=== PATIENT | female | born 1965 | race Caucasian/White ===

== ENCOUNTER 2017-12-05 08:52 | Emergency (ER) | payer BC ==
[2017-12-05] MEDS ORDERED: Adenosine 12 MG/4 ML SDV IVPUSH ONE (09:03)
[2017-12-05] MEDS ORDERED: Adenosine 6 MG/2 ML SDV IVPUSH ONE (09:03)
[2017-12-05] MEDS ORDERED: Adenosine 6 MG/2 ML SDV ONE (09:06)
[2017-12-05] MEDS ORDERED: Sodium Chloride 0.9% 1,000 ML ONE (09:06)
[2017-12-05] MEDS ORDERED: Adenosine 12 MG/4 ML SDV ONE ×2 (09:07→09:09)
[2017-12-05] MEDS ORDERED: Sodium Chloride 0.9% 10 ML Syringe FLUSH PRN (09:12)
[2017-12-05] MEDS ORDERED: Sodium Chloride 0.9% 500 ML IV ONE (09:12)
--- NOTE | 2017-12-05 09:13 | EDM.PDOC ---
ED HPI GENERAL MEDICAL PROBLEM - General Chief Complaint: Cardiovascular Problem Stated Complaint: RAPID HEART RATE Time Seen by Provider: 12/05/17 08:58 Source of Information: Reports: Patient, RN Notes Reviewed - History of Present Illness INITIAL COMMENTS - FREE TEXT/NARRATIVE: 52-year-old female comes in with palpitations, tachycardia. [place] onset of the palpitations and tachycardia about 90 minutes ago. She was not doing anything in particular at the time. Had no chest pain or tightness. Very mild dizziness. No nausea vomiting or diaphoresis. She is not aware of ever having had this before. She also has not been recently ill. Chest Pain Score (Numeric/FACES): 5 - Related Data Allergies Allergy/AdvReac Type Severity Reaction Status Date / Time No Known Allergies Allergy Verified 12/05/17 09:06 Home Meds: Home Meds Sertraline HCl [Sertraline HCl] 75 mg PO DAILY 12/05/17 [History] ED ROS GENERAL - Review of Systems Review Of Systems: Unable To Obtain Constitutional: Denies: Fever, Chills, Diaphoresis HEENT: Reports: No Symptoms Respiratory: Denies: Shortness of Breath, Pleuritic Chest Pain Cardiovascular: Denies: Chest Pain GI/Abdominal: Denies: Abdominal Pain, Nausea, Vomiting Musculoskeletal: Denies: Neck Pain, Shoulder Pain Neurological: Reports: Dizziness (Mild) ED EXAM, GENERAL - Physical Exam Exam: See Below General Appearance: Alert, No Apparent Distress Eye Exam: Bilateral Eye: PERRL Throat/Mouth: Normal Inspection Neck: Supple Respiratory/Chest: No Respiratory Distress, Lungs Clear, Normal Breath Sounds Cardiovascular: Tachycardia GI/Abdominal: Soft, Non-Tender Back Exam: No: CVA Tenderness (L), CVA Tenderness (R) Extremities: Normal Inspection, Normal Range of Motion. No: Pedal Edema, Leg Pain Neurological: Alert, Oriented, No Motor/Sensory Deficits Skin Exam: Warm, Dry, Normal Color EKG INTERPRETATION EKG Date: 12/05/17 Rhythm: NSR P-Wave: Present QRS: Normal ST-T: Depressed (Slight ST depression the V3V5) Course - Vital Signs Last Recorded V/S: Last Vital Signs Temp 97.7 F 12/05/17 09:08 Pulse 200 H 12/05/17 09:08 Resp 20 12/05/17 09:08 BP 149/97 H 12/05/17 09:08 Pulse Ox 96 12/05/17 09:08 - Orders/Labs/Meds Orders: Active Orders 24 hr Category Date Time Status EKG 12 Lead [EKG Documentation Completion] [RC] STAT Care 12/05/17 09:11 Active Peripheral IV Care [RC] . DIRECTED Care 12/05/17 09:12 Active Peripheral IV Insertion Adult [OM.PC] Stat Oth 12/05/17 09:12 Ordered Labs: Laboratory Tests 12/05/17 12/05/17 Range/Units 09:00 09:00 WBC 9.04 (3.98-10.04) K/mm3 RBC 4.75 (3.98-5.22) M/mm3 Hgb 13.1 (11.2-15.7) gm/L Hct 40.6 (34.1-44.9) % MCV 85.5 (79.4-94.8) fl MCH 27.6 (25.6-32.2) pg MCHC 32.3 (32.2-35.5) g/dl RDW Std Deviation 44.7 (36.4-46.3) fL Plt Count 329 (182-369) K/mm3 MPV 9.7 (9.4-12.3) fl Neut % (Auto) 66.2 (34.0-71.1) % Lymph % (Auto) 27.9 (19.3-51.7) % Barber % (Auto) 4.6 L (4.7-12.5) % Eos % (Auto) 1.0 (0.7-5.8) Baso % (Auto) 0.1 (0.1-1.2) % Neut # (Auto) 5.98 (1.56-6.13) K/mm3 Lymph # (Auto) 2.52 (1.18-3.74) K/mm3 Barber # (Auto) 0.42 H (0.24-0.36) K/mm3 Eos # (Auto) 0.09 (0.04-0.36) K/mm3 Baso # (Auto) 0.01 (0.01-0.08) K/mm3 Sodium 140 (136-145) mEq/L Potassium 3.7 (3.5-5.1) mEq/L Chloride 105 (98-107) mEq/L Carbon Dioxide 23 (21-32) mEq/L Anion Gap 15.7 H (5-15) BUN 11 (7-18) mg/dL Creatinine 0.9 (0.55-1.02) mg/dL Est Cr Clr Drug Dosing 74.68 mL/min Estimated GFR (MDRD) > 60 (>60) mL/min BUN/Creatinine Ratio 12.2 L (14-18) Glucose 112 H (74-106) mg/dL Calcium 8.6 (8.5-10.1) mg/dL Total Bilirubin 0.3 (0.2-1.0) mg/dL AST 16 (15-37) U/L ALT 20 (14-59) U/L Alkaline Phosphatase 74 (46-116) U/L Total Protein 6.7 (6.4-8.2) g/dl Albumin 3.1 L (3.4-5.0) g/dl Globulin 3.6 gm/dL Albumin/Globulin Ratio 0.9 L (1-2) Meds: Medications Discontinued Medications Generic Name Dose Route Start Last Admin Trade Name Goyo PRN Reason Stop Dose Admin Adenosine Confirm 12/05/17 09:06 12/05/17 09:39 Adenocard Administered 12/05/17 09:07 Not Given Dose 6 mg .ROUTE .STK-MED ONE Adenosine Confirm 12/05/17 09:07 12/05/17 09:39 Adenocard Administered 12/05/17 09:08 Not Given Dose 12 mg .ROUTE .STK-MED ONE Adenosine Confirm 12/05/17 09:09 12/05/17 09:39 Adenocard Administered 12/05/17 09:10 Not Given Dose 12 mg .ROUTE .STK-MED ONE Adenosine 6 mg 12/05/17 09:03 12/05/17 09:03 Adenocard IVPUSH 12/05/17 09:04 6 mg NOW ONE Administration Adenosine 12 mg 12/05/17 09:03 12/05/17 09:04 Adenocard IVPUSH 12/05/17 09:04 12 mg NOW ONE Administration Sodium Chloride Confirm 12/05/17 09:06 12/05/17 09:18 Normal Saline Administered 12/05/17 09:07 Not Given Dose 1,000 mls @ as directed .ROUTE .STK-MED ONE Sodium Chloride 500 mls @ 999 mls/hr 12/05/17 09:12 12/05/17 09:05 Normal Saline IV 12/05/17 09:42 999 mls/hr .BOLUS ONE Administration Sodium Chloride 10 ml 12/05/17 09:12 12/05/17 09:03 Saline Flush FLUSH 10 ml ASDIRECTED PRN Administration Keep Vein Open - Re-Assessments/Exams Free Text/Narrative Re-Assessment/Exam: 12/05/17 09:34. Patient presented to ED per private vehicle with palpitations, tachycardia as noted. monitoring specialist showed SVT, narrow complex, regular rate 210-220. I did have her try Valsalva, that did slow her rate down to the 190s but did not help her convert. After IV access obtained we did give adenosine 6 mg IV. That again her rate slowed to the 190s but did not convert. We then gave adenosine 12 mg IV and with that she did convert, currently in sinus rhythm rate 90, resting comfortably. Labs are good. She remained in sinus rhythm after conversion to her sinus rhythm about 50 minutes ago. No ectopy at this time. Discharge instructions as documented Departure - Departure Time of Disposition: 09:54 Disposition: Home, Self-Care 01 Condition: Fair Clinical Impression: SVT (supraventricular tachycardia) Instructions: Supraventricular Tachycardia, Adult, [id number] Referrals: Lyla Valenzuela [employer]ELD[employer] MACHINE TENDER [Primary Care Provider] - Forms: ED Department Discharge Additional Instructions: If and when this ever happens again to the deep breathing and bearing down likely had to do this morning. If that does not work then return to ED for further treatment. If this does start happening repetitively there is medication that can be prescribed to make this less likely to happen. Follow-up with your regular medical provider as needed, return to ED as needed. - My Orders Last 24 Hours: My Active Orders 12/05/17 09:11 EKG 12 Lead [EKG Documentation Completion] [RC] STAT 12/05/17 09:12 Peripheral IV Care [RC] . DIRECTED Peripheral IV Insertion Adult [OM.PC] Stat - Assessment/Plan Last 24 Hours: My Active Orders 12/05/17 09:11 EKG 12 Lead [EKG Documentation Completion] [RC] STAT 12/05/17 09:12 Peripheral IV Care [RC] . DIRECTED Peripheral IV Insertion Adult [OM.PC] Stat
== END 2017-12-05 10:15 | disposition home or self-care (01) ==
LOC: JD.ED 08:52
DX: I47.1 Supraventricular tachycardia (principal); Z79.899 Other long term (current) drug therapy
CPT/HCPCS: 36415; 80053; 85025; 93005; 96361; 96374; 99285; J0153; J7040; J7050; 93010; 99284

== ENCOUNTER 2017-12-21 10:19 | Emergency (ER) | payer BC ==
--- NOTE | 2017-12-21 10:40 | EDM.PDOC ---
ED HPI GENERAL MEDICAL PROBLEM - General Chief Complaint: Cardiovascular Problem Stated Complaint: RACING HEART/HIGH BLOOD PRESSURE Time Seen by Provider: 12/21/17 10:39 Source of Information: Reports: Patient - History of Present Illness INITIAL COMMENTS - FREE TEXT/NARRATIVE: Patient is here for evaluation of her recent herpes that began around 8 AM this morning. She states this lasted approximately 30 minutes and had resolved by the time she got to the emergency room. Patient denies any current symptoms. She states that this has happened 1 time previously about 2 weeks ago when she was brought into the emergency room and treated for SVT with adenocart. Patient denies any cardiac history aside from this. She does not smoke but notes significant amount of caffeine intake in the form of coffee daily. She states that today she has not had a large amount of coffee , around half of her mild. She has a history of anxiety/depression and is on sertraline for this. She notes increased stress in her work at [employer] recently. 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 She also has had stressed with her children as well as the passing of her [id number] several weeks ago. - Related Data Allergies Allergy/AdvReac Type Severity Reaction Status Date / Time No Known Allergies Allergy Verified 12/21/17 10:26 Home Meds: Home Meds Sertraline HCl [Sertraline HCl] 75 mg PO DAILY 12/05/17 [History] Past Medical History - Past Health History Medical/Surgical History: Denies Medical/Surgical History Social & Family History - Tobacco Use Smoking Status *Q: Never Smoker - Recreational Drug Use Recreational Drug Use: No ED ROS GENERAL - Review of Systems Review Of Systems: See Below Constitutional: Denies: Fever, Chills, Malaise, Weakness, Fatigue, Decreased Appetite HEENT: Reports: No Symptoms Respiratory: Reports: No Symptoms Cardiovascular: Reports: Other (Rapid heart beat). Denies: Chest Pain, Blood Pressure Problem, Lightheadedness, Orthopnea GI/Abdominal: Reports: No Symptoms Musculoskeletal: Reports: No Symptoms Skin: Reports: No Symptoms Neurological: Reports: No Symptoms Psychiatric: Reports: Anxiety, Depression, Other (Increased stress) ED EXAM, GENERAL - Physical Exam Exam: See Below Exam Limited By: No Limitations General Appearance: Alert, WD/WN, No Apparent Distress Respiratory/Chest: No Respiratory Distress, Lungs Clear, Normal Breath Sounds Cardiovascular: Normal Peripheral Pulses, Regular Rate, Rhythm, No Edema, No Murmur GI/Abdominal: Normal Bowel Sounds, Soft, Non-Tender Neurological: Alert, Oriented, No Motor/Sensory Deficits Psychiatric: Normal Affect, Normal Mood Skin Exam: Warm, Dry, Intact EKG INTERPRETATION EKG Date: 12/21/17 Time: 10:33 Rhythm: NSR Course - Vital Signs Last Recorded V/S: Last Vital Signs Temp 97.3 F 12/21/17 10:26 Pulse 87 12/21/17 10:26 Resp 16 12/21/17 10:26 BP 144/90 H 12/21/17 10:26 Pulse Ox 97 12/21/17 10:26 - Orders/Labs/Meds Orders: Active Orders 24 hr Category Date Time Status DRUG SCREEN, URINE [URCHEM] Stat Lab 12/21/17 10:47 Ordered Labs: Laboratory Tests 12/21/17 12/21/17 12/21/17 Range/Units 10:30 10:30 10:30 WBC 8.70 (3.98-10.04) K/mm3 RBC 4.97 (3.98-5.22) M/mm3 Hgb 13.6 (11.2-15.7) gm/L Hct 42.1 (34.1-44.9) % MCV 84.7 (79.4-94.8) fl MCH 27.4 (25.6-32.2) pg MCHC 32.3 (32.2-35.5) g/dl RDW Std Deviation 43.9 (36.4-46.3) fL Plt Count 287 (182-369) K/mm3 MPV 10.0 (9.4-12.3) fl Neutrophils % (Manual) 69 H (40-60) % Band Neutrophils % 0 (0-10) % Lymphocytes % (Manual) 26 (20-40) % Atypical Lymphs % 0 % Monocytes % (Manual) 4 (2-10) % Eosinophils % (Manual) 0 L (0.7-5.8) % Basophils % (Manual) 1 (0.1-1.2) Platelet Estimate Adequate RBC Morph Comment Normal Sodium 138 (136-145) mEq/L Potassium 4.3 (3.5-5.1) mEq/L Chloride 103 (98-107) mEq/L Carbon Dioxide 25 (21-32) mEq/L Anion Gap 14.3 (5-15) BUN 11 (7-18) mg/dL Creatinine 0.7 (0.55-1.02) mg/dL Est Cr Clr Drug Dosing 99.35 mL/min Estimated GFR (MDRD) > 60 (>60) mL/min BUN/Creatinine Ratio 15.7 (14-18) Glucose 95 (74-106) mg/dL Calcium 9.1 (8.5-10.1) mg/dL Magnesium 1.9 (1.8-2.4) mg/dl Total Bilirubin 0.4 (0.2-1.0) mg/dL AST 21 (15-37) U/L ALT 21 (14-59) U/L Alkaline Phosphatase 79 (46-116) U/L Troponin I < 0.017 (0.00-0.056) ng/mL Total Protein 7.5 (6.4-8.2) g/dl Albumin 3.4 (3.4-5.0) g/dl Globulin 4.1 gm/dL Albumin/Globulin Ratio 0.8 L (1-2) TSH 3rd Generation 2.492 (0.358-3.74) uIU/mL Ethyl Alcohol 0.00 (0.00) gm% - Re-Assessments/Exams Free Text/Narrative Re-Assessment/Exam: CBC and CMP are unremarkable. Magnesium 1.9. TSH 2.492. Patient is completely symptomatic at this time. EKG demonstrated normal sinus rhythm with a rate of 77. Will set patient up to have a outpatient Holter, she will follow up with her PCP this week to go over results and discuss further treatment options. 12/21/17 11:42 Departure - Departure Time of Disposition: 11:43 Disposition: Home, Self-Care 01 Condition: Good Clinical Impression: SVT (supraventricular tachycardia) Instructions: Supraventricular Tachycardia, Adult, [id number] Referrals: PCP,None [Primary Care Provider] - Forms: ED Department Discharge Additional Instructions: Your workup in the emergency room today was essentially normal. You'll be discharged wearing a heart monitor for 48 consecutive hours to further evaluate her heart rate and rhythm. Follow-up with family practice provider within the next week to go over these results. If you should have any further symptoms or symptoms do not resolve with the methods that we discussed and certainly return back to the emergency room. - My Orders Last 24 Hours: My Active Orders 12/21/17 10:47 DRUG SCREEN, URINE [URCHEM] Stat - Assessment/Plan Last 24 Hours: My Active Orders 12/21/17 10:47 DRUG SCREEN, URINE [URCHEM] Stat
== END 2017-12-21 12:30 | disposition home or self-care (01) ==
LOC: JD.ED 10:19
DX: I47.1 Supraventricular tachycardia (principal); Z79.899 Other long term (current) drug therapy
CPT/HCPCS: 36415; 80053; 80306; 81001; 83735; 84443; 84484; 85025; 93225; 93226; 99285; G0480; 93010; 99284

== ENCOUNTER 2019-11-09 06:31 | Day surgery (SDC) | payer BC ==
[~2019-11-09 06:31] MED LIST: Lactated Ringers 1,000 ML IV SCH; Lidocaine 1%/Sod Bicarbonate in NS 8.4% 1 ML Syringe IDERM PRN; Sodium Chloride 0.9% 10 ML Syringe FLUSH PRN
[2019-11-09] MEDS: Bupivacaine 0.5% 30 ML SDV ONE ×2 (07:05→08:05)
[2019-11-09] MEDS: Sodium Chloride 0.9% 50 ML SDV ONE ×2 (07:06→08:35)
[2019-11-09] MEDS: Lidocaine 1% with EPINEPHrine 1:100,000 20 ML MDV ONE ×2 (07:06→08:35)
--- NOTE | 2019-11-09 07:16 | PCM.PREANE ---
Preanesthetic Assessment - Anesthesia/Transfusion/Family Hx Anesthesia History: Prior Anesthesia Without Reaction - Review of Systems General: No Symptoms Pulmonary: No Symptoms Cardiovascular: No Symptoms Gastrointestinal: No Symptoms Neurological: No Symptoms Other: Reports: None - Physical Assessment NPO Status Date: 11/08/19 NPO Status Time: 21:00 Height: 1.78 m Weight: 137.892 kg ASA Class: 2 Mental Status: Alert & Oriented x3 Airway Class: Mallampati = 2 Dentition: Reports: Normal Dentition Thyro-Mental Finger Breadths: 3 Mouth Opening Finger Breadths: 3 ROM/Head Extension: Full Lungs: Clear to Auscultation, Normal Respiratory Effort Cardiovascular: Regular Rate, Regular Rhythm - Lab Values: Laboratory Last Values Urine HCG, Qual Negative (NEGATIVE) 11/09/19 06:38 - Allergies Allergies/Adverse Reactions: Allergies Allergy/AdvReac Type Severity Reaction Status Date / Time No Known Allergies Allergy Verified 11/08/19 16:29 - Acknowledgements Anesthesia Type Planned: General Anesthesia Pt an Appropriate Candidate for the Planned Anesthesia: Yes Alternatives and Risks of Anesthesia Discussed w Pt/Guardian: Yes Pt/Guardian Understands and Agrees with Anesthesia Plan: Yes PreAnesthesia Questionnaire - Past Health History Medical/Surgical History: Denies Medical/Surgical History Cardiovascular History: Reports: Arrhythmia, High Cholesterol, Other (See Below) Other Cardiovascular History: SVT STEWARD/STEWARDESS BATH History: Reports: Other (See Below) Other OB/BYN History: dysmenorrhea, menorrhagia, , laparscopy Endocrine/Metabolic History: Reports: Obesity/BMI 30+ - Past Surgical History Head Surgeries/Procedures: Reports: None HEENT Surgical History: Reports: Oral Surgery Respiratory Surgical History: Reports: None GI Surgical History: Reports: None Female Surgical History: Reports: None Male Surgical History: Reports: None Neurological Surgical History: Reports: None Musculoskeletal Surgical History: Reports: Other (See Below) Other Musculoskeletal Surgeries/Procedures:: ACL repair with allograft - SUBSTANCE USE Smoking Status *Q: Never Smoker Recreational Drug Use History: No - HOME MEDS Home Medications: Home Meds Diltiazem [Cardizem CD] 120 mg PO DAILY 11/08/19 [History] LORazepam [Lorazepam] 0.5 - 1 mg PO TID PRN 11/08/19 [History] Rosuvastatin Calcium 10 mg PO DAILY 11/08/19 [History] Sertraline HCl 100 mg PO DAILY 11/08/19 [History] - CURRENT (IN HOUSE) MEDS Current Meds: Current Medications Lactated Ringer's (Ringers, Lactated) 1,000 mls @ 125 mls/hr IV ASDIRECTED OLIVIA Lidocaine/Sodium Bicarbonate (Buffered Lidocaine 1% In Ns 8.4%) 0.25 ml IDERM ONETIME PRN PRN Reason: Prior to IV Start Sodium Chloride (Saline Flush) 10 ml FLUSH ASDIRECTED PRN PRN Reason: Keep Vein Open Discontinued Medications Bupivacaine HCl (Marcaine 0.5%) Confirm Administered Dose 30 ml .ROUTE .STK-MED ONE Stop: 11/09/19 06:37 Lidocaine/Epinephrine (Xylocaine 1% With Epinephrine 1:100,000) Confirm Administered Dose 20 ml .ROUTE .STK-MED ONE Stop: 11/09/19 06:37 Sodium Chloride (Normal Saline) Confirm Administered Dose 50 ml .ROUTE .STK-MED ONE Stop: 11/09/19 06:37
[2019-11-09] MEDS ORDERED: Propofol 200 MG/20 ML SDV ONE (07:19)
[2019-11-09] MEDS ORDERED: Midazolam 1 MG/ML 2 ML SDV ONE (07:19)
[2019-11-09] MEDS ORDERED: Succinylcholine/Normal Saline 100 MG/5 ML Syringe ONE (07:20)
[2019-11-09] MEDS ORDERED: fentaNYL 250 MCG/5 ML SDV ONE (07:20)
[2019-11-09] MEDS ORDERED: Rocuronium 100 MG/10 ML MDV ONE (07:24)
[2019-11-09] MEDS ORDERED: HYDROmorphone 0.5 MG/0.5 ML Syringe ONE ×2 (07:59→08:42)
[2019-11-09] MEDS ORDERED: HYDROmorphone 0.5 MG/0.5 ML Syringe IVPUSH PRN (08:50)
[2019-11-09] MEDS ORDERED: fentaNYL 100 MCG/2 ML SDV IVPUSH PRN (08:50)
[2019-11-09] MEDS ORDERED: Ondansetron 4 MG/2 ML SDV ONE (09:13)
[2019-11-09] MEDS ORDERED: Dexamethasone 4 MG/ML 5 ML MDV ONE (09:14)
[2019-11-09] MEDS ORDERED: Neostigmine Methylsulfate 1 MG/ML 5 ML Syringe ONE (09:16)
[2019-11-09] MEDS ORDERED: Lactated Ringers 1,000 ML ONE ×2 (09:17→09:40)
[2019-11-09] MEDS ORDERED: Ondansetron 4 MG/2 ML SDV IVPUSH PRN (09:39)
[2019-11-09] MEDS ORDERED: Acetaminophen/oxyCODONE 325-5 MG Tab PO PRN (09:39)
[2019-11-09] MEDS ORDERED: Ketorolac 30 MG/ML SDV IVPUSH SCH ×2 (09:45→16:00)
--- NOTE | 2019-11-09 09:45 | PCM.OPNOTE ---
- General Post-Op/Procedure Note Date of Surgery/Procedure: 11/09/19 Operative Procedure(s): Laparoscopically assisted total vaginal hysterectomy with bilateral salpingo-oophorectomy Findings: Uterus is approximately 2-1/2 times normal size. Ovaries appeared functional. Fallopian tubes unremarkable. Body mass index 46 making the surgery technically difficult. Pre Op Diagnosis: 1. Dysmenorrhea. 2. Menorrhagia Post-Op Diagnosis: Same with uterine enlargement Anesthesia Technique: General ET Tube Other Anesthesia Type: Local anesthesia with Marcaine and lidocaine quarter percent with epinephri Primary Surgeon: Bobby Kendall Secondary Surgeon: Cruz Santos Anesthesia Provider: Carl Garza Improvement Specialist: Mali Martinez Reason Improvement Specialist Was Necessary: Retraction, assistance, patient safety, quality of care. Pathology: Uterus tubes and ovaries as one specimen. Fluid Replacement, Intraop: 2,000 Drain/Tube Comments:: Indwelling bladder catheter during surgery only. Complications: None Condition: Good Free Text/Narrative:: Surgery duration: 1 hour 28 minutes The patient was taken to the operating room placed in supine position on the operating table. She received 3 g of Ancef preoperatively for infection prophylaxis. She had signed consent previously. After adequate anesthesia patient was placed in a dorsal lithotomy position. It should be noted she had sequential compression stockings in place for DVT prophylaxis. A uterine manipulator was placed as was an latex free indwelling bladder catheter. This was done after adequate prepping and draping. The patient was placed in supine position and 3 laparoscopic port sites were developed. Marcaine 0.5% approximately 3-5 mL was injected at each site. Varies needle was placed and pneumoperitoneum was achieved with 3 L of CO2. Infraumbilical and 2 lateral port sites were developed. Under laparoscopic guidance the upper portion of the hysterectomy was performed. The right infundibulopelvic ligament was elevated and crossclamped using the endoseal computerized cautery device. The round ligament was taken down to the broad ligament. At this time attention was turned to the left side and the left infundibulopelvic ligament and the triple ligament were then taken down in a similar fashion. Broad ligament was taken down to the area of the uterine vasculature. Uterine vasculature was developed in the usual fashion using the cautery system. Both uterine arteries were identified and developed. It should be noted that the procedure was technically difficult because of the patient's BMI of 46. Vaginal approach was then undertaken. The patient was placed in the dorsal lithotomy position and a weighted speculum was placed in the vagina. The cervix was injected with lidocaine quarter percent with epinephrine 20 mL total. A full circumference incision was made through the epithelium around the cervix. Posterior cul-de-sac was entered without problems. The left uterosacral ligament and then the right uterosacral were taken down using the Enseal vessel closure system. The cardinal ligament and what remained of the uterine vascular vessels and cervical branches of the vessels were managed with the Enseal vessel closure system on each side. Anterior cul-de-sac was then entered and the remaining portion of broad ligament on the right side and a small portion of broad ligament remaining on the left side were then developed in the usual fashion. Uterus was then removed. At this point the uterus was completely removed and sent as specimen. The vaginal cuff was then run anteriorly and posteriorly with a locked running suture of 0 Monocryl from the 2 o'clock position to the 10 o'clock position. The vagina was closed with a running locked suture of 0 Monocryl. Hemostasis was confirmed this time and no bleeding was noted. She be noted that it was technically very difficult procedure because of the deep nature of the vagina secondary to patient's body mass index of 46. Laparoscopy was then performed to ensure hemostasis. Pneumoperitoneum was reestablished and the laparoscope was placed. Old blood was aspirated from the pelvis. The area was irrigated. No bleeding was noted. No abnormalities were apparent. The pelvis was found to be hemostatically intact. There was no evidence of any bowel adhesion to the vaginal cuff area noted. The sleeves were removed under direct visualization and the upper sleeve was removed after reversal of the pneumoperitoneum. Each of these sites were closed with a single interrupted suture of 3-0 Monocryl. They were further approximated with Dermabond skin glue. At this point the patient was awakened from general endotracheal anesthesia. The Soto catheter had been removed by this time. She is discharged from the operating room in good condition.
[2019-11-09] MEDS ORDERED: Ketorolac 30 MG/ML SDV IVPUSH ONE (10:00)
--- NOTE | 2019-11-09 10:05 | PCM.POSTAN ---
POST ANESTHESIA ASSESSMENT - MENTAL STATUS Mental Status: Alert, Oriented - VITAL SIGNS Vital Signs: Last Vital Signs Temp 98.0 F 11/09/19 09:50 Pulse 96 11/09/19 09:50 Resp 14 11/09/19 09:50 BP 156/73 H 11/09/19 09:50 Pulse Ox 96 11/09/19 09:50 - RESPIRATORY Respiratory Status: Respiratory Rate WNL, Airway Patent, O2 Saturation Stable, Supplemental Oxygen - CARDIOVASCULAR CV Status: Pulse Rate WNL, Blood Pressure Stable - GASTROINTESTINAL GI Status: No Symptoms - PAIN Pain Score: 0 - POST OP HYDRATION Hydration Status: Adequate & Stable
--- NOTE | 2019-11-09 13:11 | PCM48HPAN ---
Post Anesthesia Note - EVALUATION WITHIN 48HRS OF ANESTHETIC Vital Signs in Normal Range: Yes Patient Participated in Evaluation: Yes Respiratory Function Stable: Yes Airway Patent: Yes Cardiovascular Function Stable: Yes Hydration Status Stable: Yes Pain Control Satisfactory: Yes Nausea and Vomiting Control Satisfactory: Yes Mental Status Recovered: Yes Vital Signs: Last Vital Signs Temp 36.7 C 11/09/19 10:50 Pulse 70 11/09/19 11:05 Resp 19 11/09/19 11:05 BP 119/56 L 11/09/19 11:05 Pulse Ox 93 L 11/09/19 11:05 - COMMENTS/OBSERVATIONS Free Text/Narrative:: no anesthesia complications noted
== END 2019-11-09 13:40 | disposition home or self-care (01) ==
LOC: JD.SDS 06:31
PROVIDERS: ATTEND Obstetrics & Gynecology
DX: D25.9 Leiomyoma of uterus, unspecified (principal); N87.9 Dysplasia of cervix uteri, unspecified; N80.0 Endometriosis of uterus; N83.02 Follicular cyst of left ovary; N88.8 Other specified noninflammatory disorders of cervix uteri; E78.5 Hyperlipidemia, unspecified; E78.00 Pure hypercholesterolemia, unspecified; I47.1 Supraventricular tachycardia; F41.8 Other specified anxiety disorders; E66.01 Morbid (severe) obesity due to excess calories; Z68.42 Body mass index [BMI] 45.0-49.9, adult; Z79.899 Other long term (current) drug therapy
CPT/HCPCS: 36415; 81025; 86850; 86900; 86901; A9270-GY; J0330; J1100; J1170; J1885; J2250; J2405; J2704; J2710; J3010; J3490; J7120

== ENCOUNTER 2021-08-27 10:55 | Emergency (ER) | payer BC ==
[2021-08-27] MEDS ORDERED: Sodium Chloride 0.9% 10 ML Syringe FLUSH PRN (11:17)
[2021-08-27] MEDS ORDERED: Sodium Chloride 0.9% 1,000 ML IV STA (11:39)
--- NOTE | 2021-08-27 13:05 | CR ---
Chest: Portable view of the chest was obtained. Comparison: Prior chest x-ray of 08/25/21. Heart size and mediastinum are within normal limits. Right lung shows very slight areas of patchy density presumably due to mild COVID pneumonia. Left lung is felt to be clear. Bony structure shows nothing acute. Impression: 1. Findings suspicious for mild COVID pneumonia within the right lung. Diagnostic code #3
--- NOTE | 2021-08-27 13:45 | EDM.PDOC ---
ED HPI GENERAL MEDICAL PROBLEM - General Chief Complaint: Syncope Stated Complaint: passed out Time Seen by Provider: 08/27/21 11:08 Source of Information: Reports: Patient, RN Notes Reviewed History Limitations: Reports: No Limitations - History of Present Illness INITIAL COMMENTS - FREE TEXT/NARRATIVE: Patient is a 55-year-old female presenting to the emergency department for Covid evaluation after experiencing a syncopal episode at the Covid clinic. Patient is on day 11 of illness. Tested positive last Tuesday but symptoms began on Tuesday. She reports decreased appetite, dizziness, nausea, abdominal pains, headaches, and sore throat. She initially had cough, but this has resolved for the most part. She went to the Covid clinic today for follow-up as she was not still not feeling well. While sitting in the chair, she became hot and dizzy and had a very brief syncopal episode. She was sitting in a chair when this occurred and she did not fall or hit her head. She complains of decreased appetite with no vomiting or diarrhea and fatigue. Was seen in the clinic 2 days ago for evaluation and started on a medication for nausea and dizziness, however she is unsure the name of it as well as cough syrup and an albuterol inhaler. She feels that she has not been eating or drinking enough. Denies any chest pain or shortness of breath. 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: Other (see below) Other 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: advill Headache Pain Score (Numeric/FACES): 9 Throat Pain Score (Numeric/FACES): 3 Generalized Pain Score (Numeric/FACES): 10 - Related Data Allergies Allergy/AdvReac Type Severity Reaction Status Date / Time No Known Allergies Allergy Verified 11/08/19 16:29 Home Meds: Home Meds Diltiazem [Cardizem CD] 120 mg PO DAILY 11/08/19 [History] LORazepam [Lorazepam] 0.5 - 1 mg PO TID PRN 11/08/19 [History] Rosuvastatin Calcium 10 mg PO DAILY 11/08/19 [History] Sertraline HCl 100 mg PO DAILY 11/08/19 [History] Acetaminophen/oxyCODONE [Percocet 325-5 MG] 2 tab PO Q4H PRN tablet 11/09/19 [Rx] Ibuprofen 600 mg PO Q4HR PRN #30 tablet 11/09/19 [Rx] Past Medical History - Past Health History Medical/Surgical History: Denies Medical/Surgical History Cardiovascular History: Reports: Arrhythmia, High Cholesterol, Other (See Below) Other Cardiovascular History: SVT Respiratory History: Reports: None Gastrointestinal History: Reports: None Genitourinary History: Reports: None JIVE DEVELOPER History: Reports: Other (See Below) Other JIVE DEVELOPER History: dysmenorrhea, menorrhagia, , laparscopy Neurological History: Reports: None Psychiatric History: Reports: None Endocrine/Metabolic History: Reports: Obesity/BMI 30+ Hematologic History: Reports: None Immunologic History: Reports: None Oncologic (Cancer) History: Reports: None Dermatologic History: Reports: None - Infectious Disease History Infectious Disease History: Reports: Novel Coronavirus - Past Surgical History Head Surgeries/Procedures: Reports: None HEENT Surgical History: Reports: Oral Surgery Respiratory Surgical History: Reports: None GI Surgical History: Reports: None Female Surgical History: Reports: None Neurological Surgical History: Reports: None Musculoskeletal Surgical History: Reports: Other (See Below) Other Musculoskeletal Surgeries/Procedures:: ACL repair with allograft Social & Family History - Tobacco Use Tobacco Use Status *Q: Never Tobacco User - Caffeine Use Caffeine Use: Reports: Coffee, Soda - Recreational Drug Use Recreational Drug Use: No ED ROS GENERAL - Review of Systems Review Of Systems: Comprehensive ROS is negative, except as noted in HPI. - Physical Exam Exam: See Below Exam Limited By: No Limitations General Appearance: Alert, WD/WN, No Apparent Distress Eye Exam: Bilateral Eye: PERRL Respiratory/Chest: No Respiratory Distress, Lungs Clear, Normal Breath Sounds, No Accessory Muscle Use, Chest Non-Tender Cardiovascular: Normal Peripheral Pulses, Regular Rate, Rhythm, No Edema, No Gallop, No JVD, No Murmur, No Rub GI/Abdominal: Normal Bowel Sounds, Soft, Non-Tender, No Organomegaly, No Distention, No Abnormal Bruit, No Mass Neuro Exam (Abbreviated): Alert, Oriented, CN II-XII Intact, Normal Cognition, Normal Gait, Normal Reflexes, No Motor/Sensory Deficits Extremities: Normal Inspection, Normal Range of Motion, Non-Tender, No Pedal Edema, Normal Capillary Refill Psychiatric: Normal Affect, Normal Mood Skin Exam: Warm, Dry, Intact, Normal Color, No Rash #1 Interpretation EKG Date: 08/27/21 Time: 11:27 Rhythm: NSR Rate (Beats/Min): 95 [place]: Normal P-Wave: Present QRS: Normal ST-T: Normal QT: Normal Course - Vital Signs Last Recorded V/S: Last Vital Signs Temp 98.3 F 08/27/21 15:29 Pulse 100 08/27/21 15:29 Resp 18 08/27/21 15:29 BP 124/98 H 08/27/21 15:29 Pulse Ox 90 L 08/27/21 15:29 - Orders/Labs/Meds Orders: Active Orders 24 hr Category Date Time Status CULTURE URINE [MREF] Stat Lab 08/27/21 13:10 Received Peripheral IV Insertion Adult [OM.PC] Stat Oth 08/27/21 11:17 Ordered Labs: Laboratory Tests 08/27/21 08/27/21 08/27/21 Range/Units 11:30 11:30 11:30 WBC 4.49 (3.98-10.04) K/mm3 RBC 4.80 (3.98-5.22) M/mm3 Hgb 14.0 (11.2-15.7) gm/dl Hct 43.5 (34.1-44.9) % MCV 90.6 (79.4-94.8) fl MCH 29.2 (25.6-32.2) pg MCHC 32.2 (32.2-35.5) g/dl RDW Std Deviation 46.1 (36.4-46.3) fL Plt Count 144 L (182-369) K/mm3 MPV 9.3 L (9.4-12.3) fl Neut % (Auto) 80.0 H (34.0-71.1) % Lymph % (Auto) 14.7 L (19.3-51.7) % [place] % (Auto) 4.9 (4.7-12.5) % Eos % (Auto) 0 L (0.7-5.8) Baso % (Auto) 0.2 (0.1-1.2) % Neut # (Auto) 3.59 (1.56-6.13) K/mm3 Lymph # (Auto) 0.66 L (1.18-3.74) K/mm3 [place] # (Auto) 0.22 L (0.24-0.36) K/mm3 Eos # (Auto) 0.00 L (0.04-0.36) K/mm3 Baso # (Auto) 0.01 (0.01-0.08) K/mm3 D-Dimer, Quantitative 0.70 H (0.19-0.50) mg/L Sodium 140 (136-145) mEq/L Potassium 3.9 (3.5-5.1) mEq/L Chloride 102 (98-107) mEq/L Carbon Dioxide 30 (21-32) mEq/L Anion Gap 11.9 (5-15) BUN 11 (7-18) mg/dL Creatinine 0.8 (0.55-1.02) mg/dL Est Cr Clr Drug Dosing 81.08 mL/min Estimated GFR (MDRD) > 60 (>60) mL/min BUN/Creatinine Ratio 13.8 L (14-18) Glucose 121 H (70-99) mg/dL Calcium 8.5 (8.5-10.1) mg/dL Total Bilirubin 0.4 (0.2-1.0) mg/dL AST 18 (15-37) U/L ALT 19 (14-59) U/L Alkaline Phosphatase 82 (46-116) U/L Troponin I < 0.017 (0.00-0.056) ng/mL C-Reactive Protein 5.2 H* (<1.0) mg/dL NT-Pro-B Natriuret Pep (0-125) pg/mL Total Protein 7.2 (6.4-8.2) g/dl Albumin 3.3 L (3.4-5.0) g/dl Globulin 3.9 gm/dL Albumin/Globulin Ratio 0.9 L (1-2) Urine Color (Yellow) Urine Appearance (Clear) Urine pH (5.0-8.0) Ur Specific [place] (1.005-1.030) Urine Protein (Negative) Urine Glucose (UA) (Negative) Urine Ketones (Negative) Urine Occult Blood (Negative) Urine Nitrite (Negative) Urine Bilirubin (Negative) Urine Urobilinogen (0.2-1.0) Ur Leukocyte Esterase (Negative) Urine RBC (0-5) /hpf Urine WBC (0-5) /hpf Ur Squamous Epith Cells (0-5) /hpf Urine Bacteria (FEW) /hpf Urine Mucus (FEW) /hpf 08/27/21 08/27/21 Range/Units 11:30 13:10 WBC (3.98-10.04) K/mm3 RBC (3.98-5.22) M/mm3 Hgb (11.2-15.7) gm/dl Hct (34.1-44.9) % MCV (79.4-94.8) fl MCH (25.6-32.2) pg MCHC (32.2-35.5) g/dl RDW Std Deviation (36.4-46.3) fL Plt Count (182-369) K/mm3 MPV (9.4-12.3) fl Neut % (Auto) (34.0-71.1) % Lymph % (Auto) (19.3-51.7) % [place] % (Auto) (4.7-12.5) % Eos % (Auto) (0.7-5.8) Baso % (Auto) (0.1-1.2) % Neut # (Auto) (1.56-6.13) K/mm3 Lymph # (Auto) (1.18-3.74) K/mm3 [place] # (Auto) (0.24-0.36) K/mm3 Eos # (Auto) (0.04-0.36) K/mm3 Baso # (Auto) (0.01-0.08) K/mm3 D-Dimer, Quantitative (0.19-0.50) mg/L Sodium (136-145) mEq/L Potassium (3.5-5.1) mEq/L Chloride (98-107) mEq/L Carbon Dioxide (21-32) mEq/L Anion Gap (5-15) BUN (7-18) mg/dL Creatinine (0.55-1.02) mg/dL Est Cr Clr Drug Dosing mL/min Estimated GFR (MDRD) (>60) mL/min BUN/Creatinine Ratio (14-18) Glucose (70-99) mg/dL Calcium (8.5-10.1) mg/dL Total Bilirubin (0.2-1.0) mg/dL AST (15-37) U/L ALT (14-59) U/L Alkaline Phosphatase (46-116) U/L Troponin I (0.00-0.056) ng/mL C-Reactive Protein (<1.0) mg/dL NT-Pro-B Natriuret Pep 83 (0-125) pg/mL Total Protein (6.4-8.2) g/dl Albumin (3.4-5.0) g/dl Globulin gm/dL Albumin/Globulin Ratio (1-2) Urine Color Yellow (Yellow) Urine Appearance Clear (Clear) Urine pH 7.0 (5.0-8.0) Ur Specific [place] 1.020 (1.005-1.030) Urine Protein 1+ H (Negative) Urine Glucose (UA) Negative (Negative) Urine Ketones Negative (Negative) Urine Occult Blood Negative (Negative) Urine Nitrite Negative (Negative) Urine Bilirubin Negative (Negative) Urine Urobilinogen 0.2 (0.2-1.0) Ur Leukocyte Esterase 1+ H (Negative) Urine RBC 0-5 (0-5) /hpf Urine WBC 5-10 H (0-5) /hpf Ur Squamous Epith Cells 0-5 (0-5) /hpf Urine Bacteria Few (FEW) /hpf Urine Mucus Few (FEW) /hpf Meds: Medications Discontinued Medications Generic Name Dose Route Start Last Admin Trade Name Freq PRN Reason Stop Dose Admin Acetaminophen 975 mg 08/27/21 15:17 08/27/21 15:25 Acetaminophen 325 Mg Tab PO 08/27/21 15:18 975 mg NOW ONE Administration Sodium Chloride 1,000 mls @ 999 mls/hr 08/27/21 11:39 08/27/21 12:04 Normal Saline IV 08/27/21 12:39 999 mls/hr NOW STA Administration Sodium Chloride 10 ml 08/27/21 11:17 08/27/21 11:31 Sodium Chloride 0.9% 10 Ml Syringe FLUSH 10 ml ASDIRECTED PRN Administration Keep Vein Open - Re-Assessments/Exams Free Text/Narrative Re-Assessment/Exam: Patient is a 55-year-old female presenting to the ER for evaluation of Covid after having syncopal episode in the Covid clinic. She is 11 days into her illness. Denies any significant cough or shortness of breath. Reports she has no appetite and has not been eating and drinking well. She has no chest pain. Feels well at this time. Exam is unremarkable. Lung sounds are clear to auscultation. Initial oxygen saturation was 88% on room air, however she is maintaining in the low 90s at rest at this time. I have ordered blood work, EKG, chest x-ray. 08/27/21 13:48 Hematology significant for D-dimer minimally elevated 0.70 and CRP 5.2. Chest x-ray reviewed by myself Dr. John and shows no obvious pneumonia. EKG shows no evidence of acute ischemia. 1 rate discussing results with patient. She mentioned that she has had a "charley horse "in her right calf for the last few days. I have ordered venous Doppler ultrasound of the right lower extremity to rule out DVT. Urinalysis is pending. Oxygen saturation continues to maintain in the low 90s. 08/27/21 14:46 Venous Doppler ultrasound impression as follows: 1. Nonvisualized right posterior tibial and peroneal veins. 2. Other visualized veins show no deep vein thrombosis. Patient will be discharged home. I will give her a dose of Tylenol before she leaves. Radiologist is seeing a very slight area of possible Covid pneumonia in her right lung. Did update her of this recommend that she watch her oxygen saturations at home. She will be sent home with a pulse oximeter. She verbalized understanding. Discharge instructions as documented. Departure - Departure Time of Disposition: 14:50 Disposition: Home, Self-Care 01 Condition: Good Clinical Impression: COVID-19 Syncope Qualifiers: Syncope type: unspecified Qualified Code(s): R55 - Syncope and collapse - Discharge Information *PRESCRIPTION DRUG MONITORING PROGRAM REVIEWED*: No *COPY OF PRESCRIPTION DRUG MONITORING REPORT IN PATIENT RUDOLPH: No Instructions: COVID-19, Near-Syncope, [id number] Referrals: Beverly Philip NP [Primary Care Provider] - Forms: ED Department Discharge Additional Instructions: Increase fluid intake. Use Tylenol and ibuprofen as needed for fever or discomfort. Do not take more than 3200 mg of ibuprofen or 4000 mg of Tylenol from all sources in a 24-hour period. Monitor your oxygen saturations intermittently. If you are maintaining an oxygen saturation below 88% and do not come up after resting for 15 minutes, or you develop any other new or worsening symptoms of concern, please do not hesitate to return to the emergency department for reevaluation. Sepsis Event Note (ED) - Focused Exam Vital Signs: Vital Signs Temp Pulse Resp BP Pulse Ox 08/27/21 15:29 98.3 F 100 18 124/98 H 90 L 08/27/21 11:14 96.6 F L 95 20 143/73 H 88 L - My Orders Last 24 Hours: My Active Orders 08/27/21 11:17 Peripheral IV Insertion Adult [OM.PC] Stat 08/27/21 13:10 CULTURE URINE [MREF] Stat - Assessment/Plan Last 24 Hours: My Active Orders 08/27/21 11:17 Peripheral IV Insertion Adult [OM.PC] Stat 08/27/21 13:10 CULTURE URINE [MREF] Stat
--- NOTE | 2021-08-27 14:44 | US ---
Right lower extremity deep venous ultrasound: Duplex and color Doppler evaluation was obtained of the right common femoral, proximal greater saphenous, superficial femoral, popliteal, posterior tibial and peroneal veins. Left common femoral vein was also evaluated. Comparison: No prior venous imaging is available. Findings: Right posterior tibial and peroneal veins are not well visualized and not evaluated. Other visualized veins show normal phasic flow, augmentation and compression. Impression: 1. Nonvisualized right posterior tibial and peroneal veins. 2. Other visualized veins show no deep venous thrombosis. Diagnostic code #2
[2021-08-27] MEDS ORDERED: Acetaminophen 325 MG Tab PO ONE (15:17)
== END 2021-08-27 15:33 | disposition home or self-care (01) ==
LOC: JD.ED 10:55 → SUPCPDRO 10:55 → JD.ED 15:33
DX: R55 Syncope and collapse (principal); U07.1 COVID-19; E78.00 Pure hypercholesterolemia, unspecified; E66.9 Obesity, unspecified; Z68.41 Body mass index [BMI] 40.0-44.9, adult; Z79.899 Other long term (current) drug therapy
CPT/HCPCS: 36415; 71045; 80053; 81001; 83880; 84484; 85025; 85379; 86140; 87086; 93005; 93971; 99284; A9270; J7030; 93010

== ENCOUNTER 2021-08-29 11:23 | Emergency (ER) | payer BC ==
--- NOTE | 2021-08-29 12:49 | EDM.PDOC ---
ED HPI GENERAL MEDICAL PROBLEM - General Chief Complaint: Respiratory Problem Stated Complaint: COVID +/LOW OXYGEN Time Seen by Provider: 08/29/21 12:49 - History of Present Illness INITIAL COMMENTS - FREE TEXT/NARRATIVE: 55-year-old female returns the emergency room with worsening oxygenation. Patient has Covid. She has been symptomatic since the fourth of this month. Apparently the patient was earlier in her illness, I believe at the clinic and was too late to get monoclonal antibody therapy. Patient now has noticed that her O2 saturation via the home monitors is decreasing oftentimes into the mid 80s. Patient has minimal chest discomfort and what little she has associated with deep breathing or coughing. But is otherwise chest pain-free if she is not doing much. Generalized Pain Score (Numeric/FACES): 5 - Related Data Allergies Allergy/AdvReac Type Severity Reaction Status Date / Time No Known Allergies Allergy Verified 08/29/21 12:05 Home Meds: Home Meds Diltiazem [Cardizem CD] 120 mg PO DAILY 11/08/19 [History] LORazepam [Lorazepam] 0.5 - 1 mg PO TID PRN 11/08/19 [History] Rosuvastatin Calcium 10 mg PO DAILY 11/08/19 [History] Sertraline HCl 100 mg PO DAILY 11/08/19 [History] Acetaminophen/oxyCODONE [Percocet 325-5 MG] 2 tab PO Q4H PRN tablet 11/09/19 [Rx] Ibuprofen 600 mg PO Q4HR PRN #30 tablet 11/09/19 [Rx] Past Medical History - Past Health History Medical/Surgical History: Denies Medical/Surgical History Cardiovascular History: Reports: Arrhythmia, High Cholesterol, Other (See Below) Other Cardiovascular History: SVT Respiratory History: Reports: None Gastrointestinal History: Reports: None Genitourinary History: Reports: None KEG RAISER 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: 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: 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 (See Below) Other KEG RAISER History: dysmenorrhea, menorrhagia, , laparscopy Neurological History: Reports: None Psychiatric History: Reports: None Endocrine/Metabolic History: Reports: Obesity/BMI 30+ Hematologic History: Reports: None Immunologic History: Reports: None Oncologic (Cancer) History: Reports: None Dermatologic History: Reports: None - Infectious Disease History Infectious Disease History: Reports: Novel Coronavirus - Past Surgical History Head Surgeries/Procedures: Reports: None HEENT Surgical History: Reports: Oral Surgery Respiratory Surgical History: Reports: None GI Surgical History: Reports: None Female Surgical History: Reports: None Neurological Surgical History: Reports: None Musculoskeletal Surgical History: Reports: Other (See Below) Other Musculoskeletal Surgeries/Procedures:: ACL repair with allograft Social & Family History - Tobacco Use Tobacco Use Status *Q: Never Tobacco User Second Hand Smoke Exposure: No - Caffeine Use Caffeine Use: Reports: None - Recreational Drug Use Recreational Drug Use: No ED ROS GENERAL - Review of Systems Review Of Systems: See Below Constitutional: Reports: No Symptoms HEENT: Reports: No Symptoms Respiratory: Reports: Pleuritic Chest Pain, Cough. Denies: Wheezing, Sputum, Hemoptysis Cardiovascular: Reports: No Symptoms Endocrine: Reports: No Symptoms GI/Abdominal: Reports: No Symptoms : Reports: No Symptoms Musculoskeletal: Reports: Other (Neurolysed achiness) Skin: Reports: No Symptoms Neurological: Reports: Headache (Earlier in the illness it seems to have resolved at this point). Denies: No Symptoms Psychiatric: Reports: No Symptoms Hematologic/Lymphatic: Reports: No Symptoms Immunologic: Reports: No Symptoms ED EXAM, GENERAL - Physical Exam Exam: See Below Exam Limited By: No Limitations General Appearance: Alert, No Apparent Distress, Obese, Other (Saturations are pretty good on 2 L of oxygen at this time) Eye Exam: Bilateral Eye: Normal Inspection Ears: Normal External Exam, Normal Canal, Hearing Grossly Normal, Normal TMs Nose: Normal Inspection, Normal Mucosa, No Blood Throat/Mouth: Normal Inspection, Normal Lips, Normal Teeth, Normal Gums, Normal Oropharynx Head: Atraumatic, Normocephalic Neck: No: Lymphadenopathy (L), Lymphadenopathy (R) Respiratory/Chest: No Respiratory Distress, Crackles ( few in the bases), Other (Few basilar crackles otherwise clear). No: Rhonchi, Wheezing Cardiovascular: Regular Rate, Rhythm, No Edema, No Murmur GI/Abdominal: Normal Bowel Sounds, Soft, Non-Tender Back Exam: Normal Inspection. No: CVA Tenderness (L), CVA Tenderness (R) Extremities: Normal Inspection, No Pedal Edema Neurological: Alert, Oriented, Normal Cognition #1 Interpretation EKG Date: 08/29/21 Rhythm: Other (Sinus rhythm with a PAC noted) Rate (Beats/Min): 82 [place]: Normal P-Wave: Present QRS: Other (Low voltage in the extremity leads) ST-T: Normal QT: Normal Comparison: No Change (No significant change compared to 08/27/2021) EKG Interpretation Comments: Abnormal EKG with low voltage extremity leads nothing acute on this tracing Course - Vital Signs Last Recorded V/S: Last Vital Signs Temp 36.2 C 08/29/21 12:04 Pulse 85 08/29/21 17:36 Resp 16 08/29/21 17:36 BP 143/79 H 08/29/21 17:36 Pulse Ox 97 08/29/21 17:36 - Orders/Labs/Meds Labs: Laboratory Tests 08/29/21 08/29/21 08/29/21 Range/Units 13:58 13:59 14:15 WBC 3.79 L (3.98-10.04) K/mm3 RBC 4.44 (3.98-5.22) M/mm3 Hgb 12.9 (11.2-15.7) gm/dl Hct 40.1 (34.1-44.9) % MCV 90.3 (79.4-94.8) fl MCH 29.1 (25.6-32.2) pg MCHC 32.2 (32.2-35.5) g/dl RDW Std Deviation 46.4 H (36.4-46.3) fL Plt Count 151 L (182-369) K/mm3 MPV 9.8 (9.4-12.3) fl Neut % (Auto) 72.5 H (34.0-71.1) % Lymph % (Auto) 21.6 (19.3-51.7) % [place] % (Auto) 5.3 (4.7-12.5) % Eos % (Auto) 0 L (0.7-5.8) Baso % (Auto) 0.3 (0.1-1.2) % Neut # (Auto) 2.75 (1.56-6.13) K/mm3 Lymph # (Auto) 0.82 L (1.18-3.74) K/mm3 [place] # (Auto) 0.20 L (0.24-0.36) K/mm3 Eos # (Auto) 0.00 L (0.04-0.36) K/mm3 Baso # (Auto) 0.01 (0.01-0.08) K/mm3 D-Dimer, Quantitative (0.19-0.50) mg/L Sodium 139 (136-145) mEq/L Potassium 3.3 L (3.5-5.1) mEq/L Chloride 102 (98-107) mEq/L Carbon Dioxide 26 (21-32) mEq/L Anion Gap 14.3 (5-15) BUN 12 (7-18) mg/dL Creatinine 0.8 (0.55-1.02) mg/dL Est Cr Clr Drug Dosing 81.08 mL/min Estimated GFR (MDRD) > 60 (>60) mL/min BUN/Creatinine Ratio 15.0 (14-18) Glucose 99 (70-99) mg/dL Calcium 8.4 L (8.5-10.1) mg/dL Ferritin 203 (8-252) ng/ml Total Bilirubin 0.3 (0.2-1.0) mg/dL AST 27 (15-37) U/L ALT 25 (14-59) U/L Alkaline Phosphatase 77 (46-116) U/L Lactate Dehydrogenase 257 H (81-234) U/L Troponin I < 0.017 (0.00-0.056) ng/mL C-Reactive Protein 7.2 H* (<1.0) mg/dL Total Protein 6.6 (6.4-8.2) g/dl Albumin 3.0 L (3.4-5.0) g/dl Globulin 3.6 gm/dL Albumin/Globulin Ratio 0.8 L (1-2) 08/29/21 Range/Units 14:15 WBC (3.98-10.04) K/mm3 RBC (3.98-5.22) M/mm3 Hgb (11.2-15.7) gm/dl Hct (34.1-44.9) % MCV (79.4-94.8) fl MCH (25.6-32.2) pg MCHC (32.2-35.5) g/dl RDW Std Deviation (36.4-46.3) fL Plt Count (182-369) K/mm3 MPV (9.4-12.3) fl Neut % (Auto) (34.0-71.1) % Lymph % (Auto) (19.3-51.7) % [place] % (Auto) (4.7-12.5) % Eos % (Auto) (0.7-5.8) Baso % (Auto) (0.1-1.2) % Neut # (Auto) (1.56-6.13) K/mm3 Lymph # (Auto) (1.18-3.74) K/mm3 [place] # (Auto) (0.24-0.36) K/mm3 Eos # (Auto) (0.04-0.36) K/mm3 Baso # (Auto) (0.01-0.08) K/mm3 D-Dimer, Quantitative 0.73 H (0.19-0.50) mg/L Sodium (136-145) mEq/L Potassium (3.5-5.1) mEq/L Chloride (98-107) mEq/L Carbon Dioxide (21-32) mEq/L Anion Gap (5-15) BUN (7-18) mg/dL Creatinine (0.55-1.02) mg/dL Est Cr Clr Drug Dosing mL/min Estimated GFR (MDRD) (>60) mL/min BUN/Creatinine Ratio (14-18) Glucose (70-99) mg/dL Calcium (8.5-10.1) mg/dL Ferritin (8-252) ng/ml Total Bilirubin (0.2-1.0) mg/dL AST (15-37) U/L ALT (14-59) U/L Alkaline Phosphatase (46-116) U/L Lactate Dehydrogenase (81-234) U/L Troponin I (0.00-0.056) ng/mL C-Reactive Protein (<1.0) mg/dL Total Protein (6.4-8.2) g/dl Albumin (3.4-5.0) g/dl Globulin gm/dL Albumin/Globulin Ratio (1-2) Meds: Medications Discontinued Medications Generic Name Dose Route Start Last Admin Trade Name Freq PRN Reason Stop Dose Admin Dexamethasone 6 mg 08/29/21 16:33 08/29/21 17:01 Dexamethasone 4 Mg/Ml 5 Ml Mdv IV 08/29/21 16:34 6 mg ONETIME ONE Administration Remdesivir 200 mg/ Sodium 250 mls @ 250 mls/hr 08/29/21 16:33 08/29/21 17:00 Chloride IV 08/29/21 16:34 250 mls/hr ONETIME ONE Administration Potassium Chloride 40 meq 08/29/21 16:27 08/29/21 17:01 Potassium Chloride 20 Meq Tab.Er PO 08/29/21 16:28 40 meq ONETIME ONE Administration - Re-Assessments/Exams Free Text/Narrative Re-Assessment/Exam: 08/29/21 16:34 Her chest x-ray is concerning for worsening Covid like pneumonia. Your C- reactive protein is gone up somewhat. Labs show mild hypokalemia at 3.3 we will give 40 mEq of Klor-Con. Right now for as long as her symptoms have been going on I would expect her to be getting better and she is not. The best course of treatment I believe for her is to start her on dexamethasone remdesivir and continue oxygen therapy. We do not have beds available here I discussed situation with Dr. Elizabeth who is kind enough to accept the patient at [facility] in [place]. Departure - Departure Time of Disposition: 16:35 Disposition: DC/Tfer to [facility] 02 Clinical Impression: 2019 novel coronavirus-infected pneumonia (NCIP), Hypoxia - Discharge Information Referrals: Beverly Philip, HOUSE FELLOW [Primary Care Provider] - Forms: ED Department Discharge Sepsis Event Note (ED) - Focused Exam Vital Signs: Vital Signs Temp Pulse Resp BP Pulse Ox Pulse Ox 08/29/21 17:36 85 16 143/79 H 97 08/29/21 12:08 91 L 08/29/21 12:04 36.2 C 95 22 H 169/85 H 87 L
--- NOTE | 2021-08-29 13:23 | CR ---
Chest: Portable view of the chest was obtained. Comparison: Prior chest x-ray of 08/27/21. Increasing density is seen on both sides of the chest which has worsened from prior exam. Lungs otherwise are clear. Heart size and mediastinum are normal. Bony structures show nothing acute. Impression: 1. Slight worsening of presumed chronic COVID pneumonia. Diagnostic code #3
[2021-08-29] MEDS ORDERED: Potassium Chloride 20 MEQ Tab.ER PO ONE (16:27)
[2021-08-29] MEDS ORDERED: REMDESIVIR 200 MG in Sodium Chloride 0.9% 250 ML IV ONE (16:33)
[2021-08-29] MEDS ORDERED: Dexamethasone 4 MG/ML 5 ML MDV IV ONE (16:33)
== END 2021-08-29 18:45 ==
LOC: JD.ED 11:23
DX: U07.1 COVID-19 (principal); J12.82 Pneumonia due to coronavirus disease 2019; R09.02 Hypoxemia; E78.00 Pure hypercholesterolemia, unspecified; E66.9 Obesity, unspecified; Z68.41 Body mass index [BMI] 40.0-44.9, adult; Z79.899 Other long term (current) drug therapy; Z86.16 Personal history of COVID-19
CPT/HCPCS: 36415; 71045; 80053; 82728; 83615; 84484; 85025; 85379; 86140; 93005; 96365; 96375; 99285; A9270; J1100; J7050; 93010; 99284

== ENCOUNTER 2023-03-07 19:58 | Emergency (ER) | payer BC ==
[2023-03-07] MEDS ORDERED: Sodium Chloride 0.9% 10 ML Syringe FLUSH PRN (20:49)
[2023-03-07 21:01] LABS: BASOPHILS ABSOLUTE AUTO 0.02 K/mm3 (0.01-0.08); BASOPHILS PERCENT AUTO 0.2 % (0.1-1.2); EOSINOPHILS ABSOLUTE AUTO 0.11 K/mm3 (0.04-0.36); EOSINOPHILS PERCENT AUTO 1.2 (0.7-5.8); HEMATOCRIT 44.7 % (34.1-44.9); HEMOGLOBIN 14.8 gm/dl (11.2-15.7); IMMATURE GRAN ABSOLUTE AUTO 0.02 K/mm3 (0.00-0.10); IMMATURE GRAN PERCENT AUTO 0.2 % (<=1.0); LYMPHOCYTES ABSOLUTE AUTO 2.83 K/mm3 (1.18-3.74); LYMPHOCYTES PERCENT AUTO 31.7 % (19.3-51.7); MEAN CORPUSCULAR HEMOGLOBIN 29.5 pg (25.6-32.2); MEAN CORPUSCULAR HGB CONC 33.1 g/dl (32.2-35.5); MEAN PLATELET VOLUME 9.8 fl (9.4-12.3); MONOCYTES ABSOLUTE AUTO 0.42 K/mm3 (0.24-0.36); MONOCYTES PERCENT AUTO 4.7 % (4.7-12.5); NEUTROPHILS ABSOLUTE AUTO 5.52 K/mm3 (1.56-6.13); PLATELET COUNT,PLT 242 K/mm3 (182-369); RED BLOOD CELL COUNT 5.02 M/mm3 (3.98-5.22); WHITE BLOOD CELL COUNT,WBC 8.92 K/mm3 (3.98-10.04)
[2023-03-07 21:09] LABS: INR 0.95; PROTHROMBIN TIME 10.2 SECONDS (9.7-12.0)
[2023-03-07 21:10] LABS: D-DIMER QUANTITATIVE 0.36 mg/L (0.19-0.50)
[2023-03-07 21:26] LABS: ALBUMIN 3.6 g/dl (3.4-5.0); ANION GAP 13.7 (5-15); BILIRUBIN TOTAL 0.3 mg/dL (0.2-1.0); BUN/CREATININE RATIO 18.2 (14-18); CALCIUM 9.4 mg/dL (8.5-10.1); CREATININE 1.1 mg/dL (0.55-1.02); EST CRCL DRUG DOSING (CG) 57.55 mL/min; MAGNESIUM 1.8 mg/dL (1.8-2.4); POTASSIUM,K 3.7 mEq/L (3.5-5.1); PROTEIN TOTAL,TP 7.4 g/dl (6.4-8.2)
== END 2023-03-07 22:17 | disposition home or self-care (01) ==
LOC: JD.ED 19:58
DX: R00.2 Palpitations (principal); E78.00 Pure hypercholesterolemia, unspecified; E66.9 Obesity, unspecified; Z68.42 Body mass index [BMI] 45.0-49.9, adult; Z86.16 Personal history of COVID-19; Z79.899 Other long term (current) drug therapy
CPT/HCPCS: 36415; 71045; 71045-26; 80053; 83735; 83880; 84484; 85025; 85379; 85610; 93005; 93010; 99283; 99285

== ENCOUNTER 2023-07-29 09:29 | Emergency (ER) | payer BC ==
[2023-07-29] MEDS: Adenosine 6 MG/2 ML SDV ONE ×2 (09:55→10:30)
[2023-07-29] MEDS: Adenosine 12 MG/4 ML SDV ONE ×4 (09:55→10:30)
[2023-07-29] MEDS ORDERED: Sodium Chloride 0.9% 10 ML Syringe FLUSH PRN (10:02)
[2023-07-29] MEDS ORDERED: Dextrose 5%-0.9% NaCl 1,000 ML IV SCH (10:15)
[2023-07-29 10:22] LABS: BASOPHILS PERCENT AUTO 0.4 % (0.0-1.0); EOSINOPHILS ABSOLUTE AUTO 0.1 K/mm3 (0.0-0.4); EOSINOPHILS PERCENT AUTO 0.7 % (0.0-6.0); HEMATOCRIT 44.8 % (37.0-47.0); IMMATURE GRAN ABSOLUTE AUTO 0.03 K/mm3 (0.00-0.05); IMMATURE GRAN PERCENT AUTO 0.3 % (0.0-0.4); LYMPHOCYTES ABSOLUTE AUTO 2.9 K/mm3 (1.0-4.8); MEAN CORPUSCULAR HEMOGLOBIN 29.5 pg (28.0-32.0); MEAN CORPUSCULAR HGB CONC 33.5 g/dl (32.0-36.0); MEAN CORPUSCULAR VOLUME 88.2 fl (83.0-99.0); MEAN PLATELET VOLUME 9.6 fl (9.4-12.3); MONOCYTES ABSOLUTE AUTO 0.4 K/mm3 (0.0-0.8); MONOCYTES PERCENT AUTO 4.8 % (0.0-8.0); NEUTROPHILS ABSOLUTE AUTO 5.7 K/mm3 (1.8-7.7); NEUTROPHILS PERCENT AUTO 61.8 % (41.0-71.0); PLATELET COUNT,PLT 247 K/mm3 (150-400); RED BLOOD CELL COUNT 5.08 M/mm3 (4.10-5.30); WHITE BLOOD CELL COUNT,WBC 9.16 K/mm3 (3.9-11.3)
[2023-07-29] MEDS ORDERED: Adenosine 6 MG/2 ML SDV IVPUSH ONE ×3 (10:26→10:28)
[2023-07-29 10:53] LABS: A/G RATIO 0.9 (1-2); ALBUMIN 3.4 g/dl (3.4-5.0); ANION GAP 15.9 (5-15); BILIRUBIN TOTAL 0.4 mg/dL (0.2-1.0); BUN/CREATININE RATIO 10.9 (14-18); C-REACTIVE PROTEIN 0.7 mg/dL (<1.0); CALCIUM 9.2 mg/dL (8.5-10.1); CREATININE 1.1 mg/dL (0.55-1.02); EST CRCL DRUG DOSING (CG) 57.55 mL/min; MAGNESIUM 1.9 mg/dL (1.8-2.4); POTASSIUM,K 3.9 mEq/L (3.5-5.1); TSH 2.39 uIU/mL (0.358-3.74)
== END 2023-07-29 11:35 | disposition home or self-care (01) ==
LOC: JD.ED 09:29
DX: I47.10 Supraventricular tachycardia, unspecified (principal); E78.00 Pure hypercholesterolemia, unspecified; E66.9 Obesity, unspecified; Z68.42 Body mass index [BMI] 45.0-49.9, adult; Z79.899 Other long term (current) drug therapy; Z86.16 Personal history of COVID-19
CPT/HCPCS: 36415; 71045; 80053; 83735; 83880; 84443; 84484; 85025; 86140; 93005; 96361; 96374; 99285; J0153; J7042; 93010; 99284